=== PATIENT | female | born 1975 | race Caucasian/White ===

== ENCOUNTER 2023-02-22 01:26 | Emergency (ER) | payer OTHER ==
[~2023-02-22] VITALS: Ht 165.1 cm; Wt 99.8 kg
[~2023-02-22 01:26] MED LIST: ATENOLOL; GEMF600T89; LISI10TA30
--- NOTE | 2023-02-22 01:30 | NUR ---
ER at bedside examining patient.
--- NOTE | 2023-02-22 01:46 | NUR ---
PATIENT PRESENTS WITH SOB, SATURATING 98% ON ROOM AIR, STATES SHE IS HAVING PALPITATIONS, HEART RATE NOTED AT 89, VITALS ARE STABLE, PATIENT PLACED IN ED BED 2, REPORT GIVEN TO GALDINO
[2023-02-22 01:49] VITALS: BP_SYST 159; PULSE 89; RESP 18; TEMP 98.4; O2SAT 98
--- NOTE | 2023-02-22 01:50 | NUR ---
Pt C/O SOB, chest palpitations hx htn NKDA VSS NAD at this time Family bedside Will continue to monitor
--- NOTE | 2023-02-22 02:42 | NUR ---
Pt C/O SOB O2 sat 98 RA hx htn NKDA VSS NAD at this time Family bedside Will continue to monitor
[2023-02-22] MEDS ORDERED: ALBUTEROL SULFATE 0.083% 2.5 MG/3 ML VIAL.NEB INH ONE (03:00)
[2023-02-22] MEDS ORDERED: ALBMDI INH (03:58)
[2023-02-22 04:21] VITALS: BP_SYST 137; PULSE 98; RESP 20; TEMP 97.7; O2SAT 100
--- NOTE | 2023-02-22 04:23 | NUR ---
Patient given written and verbal discharge instructions and verbalizes understanding. ER MD discussed with patient the results and treatment provided. Patient in stable condition. ID arm band removed. Rx of ALBUTEROL given. Patient educated on pain management and to follow up with PMD. Pain Scale ZERO OUT OF TEN. Opportunity for questions provided and answered. Medication side effect fact sheet provided.
== END 2023-02-22 04:21 | disposition home or self-care (01) ==
LOC: SED 01:26
DX: J98.01 Acute bronchospasm (principal); R06.02 Shortness of breath; R00.2 Palpitations; I10 Essential (primary) hypertension; Z79.899 Other long term (current) drug therapy
CPT/HCPCS: 93005; 71045; 94640; 99285; J7613